=== PATIENT | female | born 1975 | race Two or more races ===

== ENCOUNTER 2024-10-01 17:49 | Outpatient (CLI) | payer MEDICAID, SELFPAY | END 2024-10-01 17:50 | disposition home or self-care (01) | LOC: AMB 10-02 14:39 | PROVIDERS: Visit Provider Family Medicine | DX: S69.91XA Unspecified injury of right wrist, hand and finger(s), initial encounter (principal); W01.0XXA Fall on same level from slipping, tripping and stumbling without subsequent striking against object, initial encounter; Y92.481 Parking lot as the place of occurrence of the external cause | CPT/HCPCS: A0425; A0427 ==

== ENCOUNTER 2024-10-01 18:22 | Day surgery (SDC) | payer MEDICAID, SELFPAY ==
[2024-10-01 18:23] VITALS: BP 132/92; PULSE 102; RESP 20; TEMP 36.8; O2SAT 97
--- NOTE | 2024-10-01 18:33 | ED.FALL ---
HPI - Fall General Time Seen by Provider: 18:33 Date Seen: 10/01/24 Chief Complaint: Fall/Minor Trauma Stated Complaint: broken fingers Time Seen by Provider: 10/01/24 18:33 Source: patient and RN notes reviewed Mode of arrival: EMS Limitations: no limitations History of Present Illness HPI Narrative: Alicia is a very pleasant 49-year-old female previously stating that she is healthy who comes to the emergency room with a right hand injury after tripping on a sidewalk. States that sometime she trips but had no prodromal symptoms. She has obviously deformed fingers and lacerations on the volar surface of these fingers. She notes no head injury and denies neck pain. EMS transported patient to the hospital and had given 50 mcg of fentanyl after placing an IV. Here in the emergency room patient notes that medicine is wearing off. She cannot bend her fingers. She denies significant shoulder pain although she has obvious bruise there and is moving her shoulder to show me that. Denies any other pain at this time. Addendum: Patient initially thought to be healthy. She now tells me she is on medications and currently staying at a sober house here. She states that she had is a type 2 diabetic. She does take insulin and is on oral medications for this. She also has some mental health issues she states. Finally, she is on Suboxone. She is currently on atorvastatin, Suboxone, clonidine,empagliflozen, gabapentin, hydrochlorothiazide, insulin, lamotrigine, losartan, metformin, mirtazapine, prazosin, Effexor. She does have a blood glucose monitor. She last ate at 1730 hours. He does not smoke, not currently using any drugs or using alcohol Related Data Home Medications ?Medication ?Instructions ?Recorded ?Confirmed atorvastatin 20 mg tablet 20 mg PO DAILY 10/01/24 10/01/24 blood-glucose sensor (Dexcom G6 10/01/24 10/01/24 Sensor device) blood-glucose transmitter (Dexcom 10/01/24 10/01/24 G6 Transmitter device) blood-glucose,user interface designer,cont 10/01/24 10/01/24 (Dexcom G6 Mechanic) buprenorphine 8 mg-naloxone 2 mg 0.5 film sublingual BID 10/01/24 10/01/24 sublingual film (Suboxone) clonidine HCl 0.1 mg tablet 0.1 mg PO 3XD 10/01/24 10/01/24 empagliflozin 10 mg tablet 10 mg PO DAILY 10/01/24 10/01/24 (Jardiance) gabapentin 100 mg capsule 100 mg PO 3XD 10/01/24 10/01/24 gabapentin 800 mg tablet 800 mg PO 3XD 10/01/24 10/01/24 hydrochlorothiazide 12.5 mg tablet 12.5 mg PO DAILY 10/01/24 10/01/24 insulin glargine 100 unit/mL (3 36 unit subcut DAILY 10/01/24 10/01/24 mL) subcutaneous pen (Lantus Solostar U-100 Insulin) lamotrigine 200 mg tablet 200 mg PO DAILY 10/01/24 10/01/24 losartan 100 mg tablet 100 mg PO DAILY 10/01/24 10/01/24 metformin 500 mg tablet 1,000 mg PO BID 10/01/24 10/01/24 mirtazapine 15 mg tablet 15 mg PO QPM 10/01/24 10/01/24 prazosin 1 mg capsule 1 mg PO QPM PRN 10/01/24 10/01/24 venlafaxine 150 mg 150 mg PO DAILY 10/01/24 10/01/24 capsule,extended release 24 hr venlafaxine 37.5 mg 37.5 mg PO DAILY 10/01/24 10/01/24 capsule,extended release 24 hr Allergies Allergy/AdvReac Type Severity Reaction Status Date / Time Sulfa (Sulfonamide Allergy Unknown Rash Verified 10/01/24 19:38 Antibiotics) Review of Systems Status of ROS: Reports: 10 or more systems reviewed and unremarkable except as noted in History and below [facility] Social History How often do you have a drink containing alcohol: never AUDIT-C Alcohol total score: 0 Non-prescribed substance use: denies use Exam Narrative: Exam Narrative: Patient is alert and oriented. External ears eyes nose clear. Dentition absent. Oral cavity with moist mucous membranes. Easily visualized posterior oropharynx. Neck is supple without lymphadenopathy. Head is atraumatic normocephalic. Heart with regular rate and rhythm and lungs are clear bilaterally. Abdomen soft. Examination of the right arm shows a or in size area of ecchymosis on the right shoulder however she is able to move the shoulder without difficulty. She has a superficial laceration scratch noted on the upper arm as well. No pain with palpation over the elbow. She has no pain with palpation over the forearm or wrist. She has obvious deformity of both of her 3rd and 4th fingers with lacerations over the PIP joints. On the 3rd finger volar surface 1 can not fully visualize the joint. There are small pieces of possible gravel debris that we do all of gently wash away. These wounds are covered with normal saline gauze. Const: Vital Signs, click to edit/add: Vital Signs - 24 hr 10/01/24 18:23 10/01/24 19:16 10/01/24 19:31 Temperature 98.3 F Pulse Rate 94 93 Pulse Rate [Pulse Oximeter] 102 H Respiratory Rate 20 16 18 Blood Pressure 116/83 125/83 Blood Pressure [Le ft Arm] Blood Pressure [Le ft Upper Arm] 132/92 H Pulse Oximetry 97 94 96 Oxygen Delivery Me thod Room Air 10/01/24 20:41 10/01/24 21:31 Temperature Pulse Rate 100 97 Pulse Rate [Pulse Oximeter] Respiratory Rate 20 18 Blood Pressure Blood Pressure [Le ft Arm] 130/72 115/68 Blood Pressure [Le ft Upper Arm] Pulse Oximetry Oxygen Delivery Me thod Room Air Room Air Course Course ED Course: At this time patient is complaining only of finger pain. X-rays have been ordered. Because this does appear to be open dislocation to the very least and probably fracture dislocations patient is given 2 g of IV Ancef. She has not had a tetanus in over 10 years and thus she is given Adacel as well. Pain is returning. Have given her 4 of morphine and 4 of Zofran. Will keep her NPO at this time. Reevaluation(s) Reevaluation #1: Upon further discussion alone with urination, she notes that she is on many medications. She does or let me know about mental health issues, currently residing in a sober house and is on Suboxone, and has a history of type 2 diabetes. She has had no recent cough cold congestion, does not smoke, has no history of problems with anesthesia. I have spoken with Dr. Delio Thomas, orthopedic surgeon who will be taking patient to the OR for local anesthesia and a washout of these wounds. I do relate this to the patient. She is now experiencing more pain in her right upper extremity and thus have added x-rays of her right shoulder upper arm forearm and wrist. Vital Signs Vital signs: Initial Vital Signs Temperature 98.3 F 10/01/24 18:23 Temperature Source Temporal Artery Scan 10/01/24 18:23 Pulse Rate 102 H 10/01/24 18:23 Respiratory Rate 20 10/01/24 18:23 Blood Pressure 132/92 H 10/01/24 18:23 Blood Pressure Mean 105 10/01/24 18:23 Pulse Oximetry 97 10/01/24 18:23 Oxygen Delivery Method Room Air 10/01/24 18:23 Vital Signs Temperature 98.3 F 10/01/24 18:23 Pulse Rate 102 H 10/01/24 18:23 Respiratory Rate 20 10/01/24 18:23 Blood Pressure 132/92 H 10/01/24 18:23 Pulse Oximetry 97 10/01/24 18:23 Oxygen Delivery Method Room Air 10/01/24 18:23 Temperature 98.3 F 10/01/24 18:23 Pulse Rate 97 10/01/24 21:31 Respiratory Rate 18 10/01/24 21:31 Blood Pressure 115/68 10/01/24 21:31 Pulse Oximetry 96 10/01/24 19:31 Oxygen Delivery Method Room Air 10/01/24 21:31 Medications Administered Medications: Discontinued Medications Generic Name Dose Route Start Last Admin Trade Name Freq PRN Reason Stop Dose Admin Diphtheria/Tetanus/Acell Pertussis 0.5 ml 10/01/24 18:33 10/01/24 18:49 Tetanus/Diphth/Pertussis 0.5 Ml Syringe IM 10/01/24 18:34 0.5 ml .ONCE ONE Administration Hydromorphone HCl 0.5 mg 10/01/24 19:46 10/01/24 20:09 Hydromorphone 0.5 Mg/0.5 Ml Inj IVP 10/01/24 19:47 0.5 mg ONCE ONE Administration Cefazolin Sodium 2 gm/ Sodium 100 mls @ 200 mls/hr 10/01/24 18:33 10/01/24 19:36 Chloride IVPB 10/01/24 18:34 Infused ONCE ONE Infusion Lidocaine/Epinephrine 20 ml 10/01/24 21:18 10/01/24 20:45 Lidocaine 1%-Epi 1:100,000 INJECTION 10/01/24 21:19 15.5 ml ONCE ONE Administration Morphine Sulfate 4 mg 10/01/24 18:33 10/01/24 18:46 Morphine 4 Mg/Ml Inj IVP 10/01/24 18:34 4 mg ONCE ONE Administration Ondansetron HCl 4 mg 10/01/24 18:33 10/01/24 18:46 Ondansetron 2 Mg/Ml Inj IVP 10/01/24 18:34 4 mg ONCE ONE Administration MDM - Fall MDM Narrative Medical decision making narrative: 1. Right sided finger open dislocations 3rd and 4th finger-3rd PIP joint easily visualized. Spoke with orthopedics as I do suspect she will need a more thorough washout then we could do in the emergency room. Dr. Delio Thomas on duty tonight and will be taking patient to the OR with planned local anesthesia and washout. Patient given Ancef 2 g IV as well as add a cell for tetanus update. Pain controlled with morphine fentanyl and Dilaudid. Complicating patient's recovery will be the fact that she likely will need narcotic pain medications and she does have history of narcotic addiction currently on Suboxone. 2. Right wrist injury-patient did have pain in her wrist and questionable trapezium compromise on the hand x-ray. However, dedicated x-rays of the wrist show no such fracture. Further, shoulder humerus and forearm x-rays without fracture. 3. History of addiction, currently in sober house on Suboxone 4. Type 2 diabetic, oral medications and insulin has indwelling monitor 5. Disposition-admit to same-day surgery Dr. Delio Thomas surgeon. Imaging Data Hand tray: Attestation: I have reviewed the pertinent imaging results. My impression: Obvious dislocation at the PIP 3rd and 4th fingers Radiologist's impression: Bone: There is a curvilinear density near the base of the trapezium on the frontal view. Evaluation of the digits on the lateral examination is severely degraded due to overlapped digit positioning. The distal radius and ulna are obscured by an overlying watch. Joint: Dorsal dislocation of the 3rd and 4th proximal interphalangeal joints are noted. Severe widening of the scapholunate joint is noted. Soft tissue: Unremarkable. No radiopaque foreign bodies are seen. IMPRESSIONS: 1. Dorsal dislocation of the 3rd and 4th proximal interphalangeal joints are noted. 2. Severe widening of the scapholunate joint is noted. This can be due to injury of the associated scapholunate ligament. Without prior comparison studies, the age is indeterminate. 3. There is a curvilinear density near the base of the trapezium on the frontal view. Dedicated radiographs of the wrist are recommended to exclude a fracture. Shoulder x-ray: Attestation: I have reviewed the pertinent imaging results. My impression: I do not note any acute fracture Radiologist's impression: Bones: Alignment is normal. No fractures or bone lesions. Joint spaces: Unremarkable. Soft tissues: Unremarkable. Impression: No acute fracture or dislocation. Humerus x-ray: Attestation: I have reviewed the pertinent imaging results. My impression: No obvious fracture Radiologist's impression: No acute fractures or dislocation. The joint spaces are preserved. No significant joint effusion. No significant soft tissue edema or radiopaque foreign bodies. IMPRESSION: No acute fractures or dislocation. X-ray forearm: Attestation: I have reviewed the pertinent imaging results. My impression: No acute fractures Radiologist's impression: No acute fractures. The joint spaces are preserved. No significant joint effusion. No significant soft tissue edema or radiopaque foreign bodies. IMPRESSION: No acute fractures. Wrist x-ray: Attestation: I have reviewed the pertinent imaging results. Radiologist's impression: No acute fractures or dislocation. The joint spaces are preserved. Scaphoid appears intact. No significant soft tissue edema or radiopaque foreign bodies. IMPRESSION: No acute fractures or dislocation. Critical Care Time Critical Care Time Critical Care Time: Yes Attestation: The patient required my highest level preparedness to intervene emergently and I personally spent this critical care time directly and personally managing the patient. This critical care time included: Obtaining a history; Examining the patient; Pulse oximetry; Ordering and reviewing of studies; Arranging urgent treatment with development of a management plan; Evaluation of patients response to treatment; Frequent reassessment discussions with other providers. This critical care time was performed to assess and manage the high probability of imminent life-threatening deterioration that could result in multiorgan failure. It was exclusive of separate billable procedures and treating other patients and teaching time. Total Critical Care Time in Minutes: 45 Discharge Plan Discharge Clinical Impression: Dislocation of finger, interphalangeal joint, right, open Patient Disposition: XFER to OR Condition: Improved
--- NOTE | 2024-10-01 18:42 | CRLHL7_ITS ---
For Patients: As a result of the Century Cures Act, medical imaging exams and procedure reports are released immediately into your electronic medical record. You may view this report before your referring provider. If you have questions, please contact your health care provider. INDICATION: Fall. Deformity, hand injury today, multiple finger injuries TECHNIQUE: Hand radiograph 3 views right COMPARISON: None FINDINGS: Bone: There is a curvilinear density near the base of the trapezium on the frontal view. Evaluation of the digits on the lateral examination is severely degraded due to overlapped digit positioning. The distal radius and ulna are obscured by an overlying watch. Joint: Dorsal dislocation of the 3rd and 4th proximal interphalangeal joints are noted. Severe widening of the scapholunate joint is noted. Soft tissue: Unremarkable. No radiopaque foreign bodies are seen. IMPRESSIONS: 1. Dorsal dislocation of the 3rd and 4th proximal interphalangeal joints are noted. 2. Severe widening of the scapholunate joint is noted. This can be due to injury of the associated scapholunate ligament. Without prior comparison studies, the age is indeterminate. 3. There is a curvilinear density near the base of the trapezium on the frontal view. Dedicated radiographs of the wrist are recommended to exclude a fracture. Dictated by Elieser Pryor MD @ 10/01/2024 7:34:53 PM Dictated by: Elieser Pryor MD @ 10/01/2024 19:35:01 (Electronically Signed)
[2024-10-01] MEDS: ONDANSETRON 2 MG/ML inj 4 MG IVP (18:46)
[2024-10-01] MEDS: MORPHINE 4 MG/ML INJ IVP (18:46)
[2024-10-01] MEDS: CEFAZOLIN 2 GM in 0.9 % SODIUM CHLORIDE Mini-bag 100 ML IVPB (18:47)
[2024-10-01] MEDS: TETANUS/DIPHTH/PERTUSSIS 0.5 ML SYRINGE IM (18:49)
--- OUTSIDE RECORDS SUMMARY | 2024-10-01 19:05 | XMS_ITS | Clinical Summary ---
Author Organization [facility] Address [address] [place] [id number] Care Team Providers Care Renal Nurse Name Role Phone Pcp, No Primary Care Provider Unavailabl e Allergies Active Allergy Reactions Criticality Noted Date Comments Sulfa (Sulfonamide Antibiotics) *Unknown 05/2016 Medications ibuprofen (ADVIL; MOTRIN) 800 mg tabletIndications:C hest wall contusion, unspecified laterality, initial encounter,Cervical strain, initial encounter Take 1 tablet by mouth every 8 hours if needed for Pain. 25 tablet 7 Active ondansetron (ZOFRAN ODT) 4 mg disintegrating tabletIndications:H eroin withdrawal (HC) Place 1 tablet on the tongue every 8 hours if needed for Nausea/Vomi ting. 15 tablet 9 Active Active Problems No known active problems Encounters Date Type Department Care Team Description 09/15/2024 Transcribe Orders [facility] [address] [facility] [address] [facility] [address] [place] [address] Erik Saha MD from Last 3 Months Social History Tobacco Use Types Packs/Day Years Used Date Smoking Tobacco: Never Smokeless Tobacco: Never Tobacco Cessation:Counseling Given: No Alcohol Use Standard Drinks/Week Comments Yes 0 (1 standard drink = 0.6 oz pur e alcohol) occ Comments No Sex and Gender Information Value Date Recorded Sex Assigned at Not on file Legal Sex Female 7:23 PM CDT Gender Identity Not on file Sexual Orientation Not on file Obstetrics History Last Filed Vital Signs Vital Sign Reading Time Taken Comments Blood Pressure 170/110 11/25/2018 3:23 PM CDT Pulse 107 11/25/2018 3:23 PM CDT Temperature 36.7 C (98 F) 11/25/2018 11:59 AM CDT Respiratory Rate 16 11/25/2018 3:23 PM CDT Oxygen Saturation 98% 11/25/2018 3:23 PM CDT Inhaled Oxygen Concentration - - Weight 56.7 kg (125 lb) 11/25/2018 11:59 AM CDT Height 162.6 cm (5' 4) 11/25/2018 11:59 AM CDT Body Mass Index 21.46 11/25/2018 11:59 AM CDT Plan of Treatment Upcoming Encounters Date Type Department Care Team (Late st Contact Info) Description 10/14/2024 9:45 AM CDT Office Visit [facility] [address] [place], [place] [id number] Arleen Hanks L, OD [address] [facility] [address] [place], [place] [id number] Insurance * Guarantor: Alicia Gonzalez Account Type Relation to Patient Date of Phone Billing Address Personal/Family Self [address] [place] [id number] [facility] Care Teams Renal Nurse Relationship Specialty Start Date End Date Pcp, No . PCP - General 11/25/18
[2024-10-01 19:16] VITALS: BP 116/83; PULSE 94; RESP 16; O2SAT 94
[2024-10-01 19:31] VITALS: BP 125/83; PULSE 93; RESP 18; O2SAT 96
--- NOTE | 2024-10-01 19:47 | CRLHL7_ITS ---
For Patients: As a result of the Century Cures Act, medical imaging exams and procedure reports are released immediately into your electronic medical record. You may view this report before your referring provider. If you have questions, please contact your health care provider. INDICATION: Trauma. TECHNIQUE: Right wrist radiographs, 3 views. COMPARISON: None. FINDINGS: No acute fractures or dislocation. The joint spaces are preserved. Scaphoid appears intact. No significant soft tissue edema or radiopaque foreign bodies. IMPRESSION: No acute fractures or dislocation. Dictated by Aaron Horn MD @ 10/01/2024 9:06:25 PM (Electronically Signed)
--- NOTE | 2024-10-01 19:51 | CRLHL7_ITS ---
For Patients: As a result of the Century Cures Act, medical imaging exams and procedure reports are released immediately into your electronic medical record. You may view this report before your referring provider. If you have questions, please contact your health care provider. INDICATION: Trauma. TECHNIQUE: Right humerus radiographs, 2 views. COMPARISON: None. FINDINGS: No acute fractures or dislocation. The joint spaces are preserved. No significant joint effusion. No significant soft tissue edema or radiopaque foreign bodies. IMPRESSION: No acute fractures or dislocation. Dictated by Aaron Horn MD @ 10/01/2024 9:10:04 PM (Electronically Signed)
--- NOTE | 2024-10-01 19:51 | CRLHL7_ITS ---
For Patients: As a result of the Cures Act, medical imaging exams and procedure reports are released immediately into your electronic medical record. You may view this report before your referring provider. If you have questions, please contact your health care provider. Indication: Shoulder trauma. Technique: Right shoulder 2 views. Comparison: None. Findings: Bones: Alignment is normal. No fractures or bone lesions. Joint spaces: Unremarkable. Soft tissues: Unremarkable. Impression: No acute fracture or dislocation. Dictated by Sj Perdue MD @ 10/01/2024 9:02:15 PM (Electronically Signed)
--- NOTE | 2024-10-01 19:51 | CRLHL7_ITS ---
For Patients: As a result of the Century Cures Act, medical imaging exams and procedure reports are released immediately into your electronic medical record. You may view this report before your referring provider. If you have questions, please contact your health care provider. INDICATION: Trauma. TECHNIQUE: Right forearm radiographs, 2 views. COMPARISON: None. FINDINGS: No acute fractures. The joint spaces are preserved. No significant joint effusion. No significant soft tissue edema or radiopaque foreign bodies. IMPRESSION: No acute fractures. Dictated by Aaron Horn MD @ 10/01/2024 9:08:59 PM (Electronically Signed)
--- NOTE | 2024-10-01 20:38 | P.ORPRC_ITS ---
Procedure Note Date of procedure: 10/01/24 Procedure: PREOPERATIVE DIAGNOSIS: 1. Right middle finger open PIP joint dislocation 2. Right ring finger open PIP joint dislocation POSTOPERATIVE DIAGNOSIS: 1. Right middle finger open PIP joint dislocation 2. Right ring finger open PIP joint dislocation PROCEDURE: 1. Right middle finger PIP joint open reduction, irrigation, and debridement. 2. Right ring finger PIP joint open reduction, irrigation, and debridement. SURGEON: Delio Thomas MD. FINANCE LECTURER: Basia Rojas P.A.-C. - Of note, an cardiology physician assistant was critical for this case to aid in patient positioning, tissue retraction, limb manipulation/positioning, and wound closure. ANESTHESIA: Local anesthetic with digital nerve blocks TOURNIQUET: Not utilized ESTIMATED BLOOD LOSS: 3 mL COMPLICATIONS: None evident PROVIDER OPERATED C-ARM: C-arm fluoroscopy operated by Dr. Ariel Thomas for confirmation of joint reduction. Ten C-arm spot images were obtained. Fluoroscopy time was 8 seconds. INDICATIONS: The patient is a pleasant 49-year-old female who sustained open PIP right ring finger and middle finger joint dislocations earlier this evening following a ground level fall. Due to the open nature of this injury, recommendation is made for surgical intervention consisting of right middle and ring finger open reduction, irrigation, and debridement. Prior to surgery, the risks and benefits of the procedure were discussed with patient, all questions were answered, and informed consent was obtained. FINDINGS: Dorsal PIP joint dislocations of the right ring and small finger with an oblique 2 cm laceration on the volar aspect of the ring finger just proximal to the PIP flexion crease and a transverse 2.5 cm laceration in the flexion crease of the middle finger PIP joint. There was no gross contamination. After reduction, the PIP joints of both fingers were stable to ulnar and radial stress. There was noted to be hyperextension of the ring finger PIP joint, but joint remained reduced. FDS and FDP tendons of the ring and middle fingers appe ared intact. Fingers remained warm and well perfused with good capillary refill throughout the course of the procedure. DESCRIPTION OF PROCEDURE: Patient was seen preoperatively and operative sites were marked. She was then brought to the operating room and placed in supine position the OR table. Digital nerve blocks were performed using 1% lidocaine on the right middle and right ring fingers. A tourniquet placed the patient's right arm but was not used during the course of the procedure. Right upper extremities prepped and draped in usual sterile fashion. Patient had been given IV cefazolin preoperatively in the emergency department. A surgical time-out was then performed confirming patient identity, surgical sites, surgical procedure. Before performing reduction, the wounds on the volar aspects of the ring and middle finger for irrigated with a copious amounts of normal saline. Reduction of both PIP joints was then performed. Both PIP joints reduced easily. After reduction, fluoroscopic images were obtained which confirmed anatomic reduction of both PIP joints. The FDP and FDS tendons of the ring and middle fingers were evaluated and all were confirmed to be intact. Wounds on the volar aspects of both the ring and middle fingers were then irrigated again with copious amounts of normal saline. A total of 3 L of normal saline was utilized for irrigation during the procedure. Final fluoroscopic stress images showed hyperextension of the ring finger PIP joint, but PIP joint remained reduced. Hemostasis was achieved with bipolar electrocautery. Wounds were closed with 4- 0 nylon simple interrupted sutures. Sterile dressings were applied followed by application of a dorsal splint which mobilized the PIP joints in approximately 60? of flexion. Patient was then will transferred back to the emergency department for planned discharge to home. PLAN: 1. Ice and elevation for pain and swelling 2. Keflex 500 mg t.i.d. x7 days 3. Ibuprofen, acetaminophen, or Cowden as needed for pain control 4. Keep splint clean and dry. 5. Follow-up in Orthopedic Clinic in 1-2 days for follow-up evaluation.
--- NOTE | 2024-10-01 20:38 | PM.ORCN ---
History of Present Illness HPI Date Seen: 10/01/24 Consult date: 10/01/24 Requesting physician: Lenora Berumen Chief complaint: Right middle and ring finger dislocations Narrative: Alicia 49-year-old [id number] female with a past medical history significant for type 2 diabetes. She presented to the emergency department earlier this evening after injuring her hand following a ground level fall. Patient works at [employer] and states that she was walking in the parking lot during a work break when she tripped and fell landing on her right hand. After the fall, she noted wounds and obvious deformities to her right middle and ring fingers. She was subsequently diagnosed with open dislocations of the right middle and ring finger PIP joints. She was provided with IV cefazolin and 50 mcg of fentanyl. On my examination, she is complaining of pain to her middle and ring fingers and is unable to move these fingers. She states that there is some numbness in both of the digits. She also reports mild discomfort in her shoulder and wrist. She last ate at 1730 hours. She does not smoke, not currently using any drugs or using alcohol. [facility] Social History How often do you have a drink containing alcohol: never AUDIT-C Alcohol total score: 0 Non-prescribed substance use: denies use Meds Home Medications and Allergies Home Medications ?Medication ?Instructions ?Recorded ?Confirmed ?Type atorvastatin 20 mg tablet 20 mg PO DAILY 10/01/24 10/01/24 History blood-glucose sensor (Dexcom G6 10/01/24 10/01/24 History Sensor device) blood-glucose transmitter (Dexcom 10/01/24 10/01/24 History G6 Transmitter device) blood-glucose,estate planner,cont 10/01/24 10/01/24 History (Dexcom G6 Warehouse Picker) buprenorphine 8 mg-naloxone 2 mg 0.5 film sublingual BID 10/01/24 10/01/24 History sublingual film (Suboxone) clonidine HCl 0.1 mg tablet 0.1 mg PO 3XD 10/01/24 10/01/24 History empagliflozin 10 mg tablet 10 mg PO DAILY 10/01/24 10/01/24 History (Jardiance) gabapentin 100 mg capsule 100 mg PO 3XD 10/01/24 10/01/24 History gabapentin 800 mg tablet 800 mg PO 3XD 10/01/24 10/01/24 History hydrochlorothiazide 12.5 mg tablet 12.5 mg PO DAILY 10/01/24 10/01/24 History insulin glargine 100 unit/mL (3 36 unit subcut DAILY 10/01/24 10/01/24 History mL) subcutaneous pen (Lantus Solostar U-100 Insulin) lamotrigine 200 mg tablet 200 mg PO DAILY 10/01/24 10/01/24 History losartan 100 mg tablet 100 mg PO DAILY 10/01/24 10/01/24 History metformin 500 mg tablet 1,000 mg PO BID 10/01/24 10/01/24 History mirtazapine 15 mg tablet 15 mg PO QPM 10/01/24 10/01/24 History prazosin 1 mg capsule 1 mg PO QPM PRN 10/01/24 10/01/24 History venlafaxine 150 mg 150 mg PO DAILY 10/01/24 10/01/24 History capsule,extended release 24 hr venlafaxine 37.5 mg 37.5 mg PO DAILY 10/01/24 10/01/24 History capsule,extended release 24 hr Allergies Allergy/AdvReac Type Severity Reaction Status Date / Time Sulfa (Sulfonamide Allergy Unknown Rash Verified 10/01/24 19:38 Antibiotics) Ortho Exam Narrative Exam Narrative: General: Alert and oriented no apparent distress. Musculoskeletal: Right hand was examined. Obvious deformities to the ring and small fingers with lacerations to the volar aspect of the middle and ring fingers at the level of the PIP joints. PIP joints are dislocated dorsally and there is visible bone through the middle finger wound. She was unable to move her middle and ring fingers. Sensation is decreased but intact to her middle and ring fingers. Middle and ring fingers are warm and well perfused with good capillary refill. Examination of the wrist reveal no obvious deformity or significant soft tissue swelling. She was able to flex and extend her wrist without pain. There was no tenderness to palpation over the scapholunate interval, distal radius, or distal ulna.. Minimal tenderness to palpation of the anatomic snuffbox. Const Vital Signs, click to edit/add: Vital Signs - 24 hr 10/01/24 18:23 10/01/24 19:16 10/01/24 19:31 Temperature 98.3 F Pulse Rate 94 93 Pulse Rate [Pulse Oximeter] 102 H Respiratory Rate 20 16 18 Blood Pressure 116/83 125/83 Blood Pressure [Left Upper Arm] 132/92 H Pulse Oximetry 97 94 96 Oxygen Delivery Method Room Air Results Diagnostic results Shoulder x-ray: report reviewed (No fracture or dislocation) and image reviewed Wrist/Hand x-ray: report reviewed and image reviewed (X-rays the hand revealed widening of the scapholunate interval with dorsal dislocations of the ring finger and middle finger PIP joints.) Assessment and Plan Assessment and plan (1) Open dislocation of proximal interphalangeal (PIP) joint of right middle finger: Status: Acute (2) Open dislocation of proximal interphalangeal (PIP) joint of right ring finger: Status: Acute (3) Injury of right scapholunate ligament with no instability: Status: Acute Plan Patient has open dislocations of the right ring and middle finger PIP joints. Recommendation is for surgical intervention consisting of irrigation, debridement, and open reduction. Risks and benefits of procedure were discussed with patient today, all questions were answered and informed consent was obtained. This will be performed in the operating room under local anesthesia as soon as the operating room is available. Patient has already received 2 g IV Ancef emergency department. Will plan to discharge patient home following the procedure with close follow-up in the orthopedic clinic. There is also noted to be widening of the scapholunate interval on the right hand x-rays, however, this may be chronic as patient has no significant pain, tenderness, or soft tissue swelling of the wrist. We will re-evaluate this on an outpatient basis.
[2024-10-01 20:41] VITALS: BP 130/72; PULSE 100; RESP 20; O2SAT 96
[2024-10-01] MEDS: LIDOCAINE 1%-EPI 1:100,000 20 ML INJECTION (20:45)
[2024-10-01 21:41] VITALS: BP 111/69; PULSE 96; RESP 20; O2SAT 97
[2024-10-01 22:16] VITALS: BP 132/73; PULSE 93; RESP 20; TEMP 36.7; O2SAT 96
== END 2024-10-01 22:13 | disposition home or self-care (01) ==
LOC: ED 20:10 → SS 20:43
PROVIDERS: Emergency Provider Family Medicine; Visit Provider Orthopaedic Surgery
PROC: (CPT 26785; principal; 2024-10-01 20:15)
DX: S63.284A Dislocation of proximal interphalangeal joint of right ring finger, initial encounter (principal); S63.282A Dislocation of proximal interphalangeal joint of right middle finger, initial encounter; S61.212A Laceration without foreign body of right middle finger without damage to nail, initial encounter; S61.214A Laceration without foreign body of right ring finger without damage to nail, initial encounter; Z23 Encounter for immunization; W01.0XXA Fall on same level from slipping, tripping and stumbling without subsequent striking against object, initial encounter; Y92.481 Parking lot as the place of occurrence of the external cause; Y99.0 Civilian activity done for income or pay; Z79.84 Long term (current) use of oral hypoglycemic drugs; E11.9 Type 2 diabetes mellitus without complications; Z79.4 Long term (current) use of insulin; F11.21 Opioid dependence, in remission; I10 Essential (primary) hypertension
CPT/HCPCS: 26785 ×2; 73030; 73060; 73090; 73110; 73120; 73130; 76000; 90471; 90715; 99284; 99285; 99291; J0690; J1171; J2270; J2405